=== PATIENT | female | born 1985 | race Two or more races ===

== ENCOUNTER 2025-03-02 14:46 | Outpatient (CLI) | payer OTHER | END 2025-03-02 14:49 | disposition home or self-care (01) | LOC: SONOGRAMA 14:46 | PROVIDERS: ATTEND Pathology Anatomic Pathology & Clinical Pathology | DX: C73 Malignant neoplasm of thyroid gland (principal); D34 Benign neoplasm of thyroid gland; E06.3 Autoimmune thyroiditis; R59.0 Localized enlarged lymph nodes; E04.1 Nontoxic single thyroid nodule ==

== ENCOUNTER 2025-04-03 15:00 | Outpatient (CLI) | payer OTHER | END 2025-04-03 15:02 | disposition home or self-care (01) | LOC: SONOGRAMA 15:00 | PROVIDERS: ATTEND Pathology Anatomic Pathology & Clinical Pathology | DX: D34 Benign neoplasm of thyroid gland (principal); E06.3 Autoimmune thyroiditis; E04.2 Nontoxic multinodular goiter ==